=== PATIENT | female | born 1985 | race Caucasian/White ===

== ENCOUNTER 2022-05-26 02:28 | Emergency (ER) | payer SELFPAY ==
[~2022-05-26] VITALS: Ht 172.7 cm; Wt 131.4 kg
[2022-05-26] MEDS ORDERED: GABAPENTIN300 MG PO (02:46)
[2022-05-26] MEDS ORDERED: EXCEDRIN EXTRA1 EAC1 PO (02:47)
== END 2022-05-26 03:36 | disposition home or self-care (01) ==
LOC: ED 02:28
DX: M54.50 Low back pain, unspecified (principal); G89.29 Other chronic pain; Z88.8 Allergy status to other drugs, medicaments and biological substances; Z91.041 Radiographic dye allergy status; Z79.82 Long term (current) use of aspirin
CPT/HCPCS: 99283

== ENCOUNTER 2025-02-21 00:10 | Emergency (ER) | payer OTHER ==
[~2025-02-21] VITALS: Ht 172.7 cm; Wt 120.0 kg
[~2025-02-21 00:10] MED LIST: EXCEDRIN EXTRA1 EAC1 PO; GABAPENTIN300 MG PO; IMPOYZ100 GM TOP; PHENTERMINE HCL15 MG PO
[2025-02-21 00:14] VITALS: BP 149/78
[2025-02-21] MEDS ORDERED: AMOXICILLIN/CLAVULANATE K 875 MG TAB PO ONE (01:00)
[2025-02-21] MEDS ORDERED: LORazepam 1 MG TAB PO ONE (01:00)
[2025-02-21] MEDS ORDERED: LIDOCAINE HCL 4% 50 ML BTL TOP ONE (01:30)
[2025-02-21] MEDS ORDERED: HYDROCODONE BIT/ACETAMINOPHEN 5/325 MG 1 TAB HOME.PACK PO ONE (02:45)
[2025-02-21] MEDS ORDERED: HYDROCODONE/ACETA 5/325 TAB PO ONE (02:45)
[2025-02-21] MEDS ORDERED: AMOXICILLIN/CLAVULANATE K 875 MG HOME.PACK PO ONE (02:45)
[2025-02-21] MEDS ORDERED: HYDROCODON-ACE1 EA10 PO (02:47)
[2025-02-21] MEDS ORDERED: AMOX TR-K CLV1 EAC1 PO (02:47)
== END 2025-02-21 03:05 | disposition home or self-care (01) ==
LOC: ED 00:10
DX: S62.634B Displaced fracture of distal phalanx of right ring finger, initial encounter for open fracture (principal); E11.9 Type 2 diabetes mellitus without complications; Z88.1 Allergy status to other antibiotic agents; Z91.041 Radiographic dye allergy status; Z79.899 Other long term (current) drug therapy; W23.0XXA Caught, crushed, jammed, or pinched between moving objects, initial encounter
CPT/HCPCS: 12001; 73130; 99283; A9270; A9270-GY